=== PATIENT | female | born 1975 | race Caucasian/White ===

== ENCOUNTER → 2019-01-01 | Outpatient (CLI) | payer OTHER, SELFPAY ==
[2015-11-07 17:32] VITALS: BMI 21.4
[2019-01-01 18:31] LABS: ALB/GLOB Ratio 1.2 RATIO (0.9-2.4); AST(SGOT) 13 U/L (15-37); Alanine Aminotransfer ALT/SGPT 15 U/L (13-56); Albumin, Serum 3.9 g/dL (3.2-5.0); Alkaline Phosphatase 53 U/L (45-117); Anion Gap 6 (5-15); BUN 17 mg/dL (7-18); BUN/Creat Ratio 18.4 RATIO (10-20); Calcium,Total 8.9 mg/dL (8.5-10.1); Chloride 106 mmol/L (98-107); Creatinine, Serum 0.92 mg/dL (0.55-1.02); EST Glomerular Filtration Rate 70 mL/min (>60); Est Glom Filt Rate - Afr Amer 85 mL/min (>60); Globulin 3.2 g/dL (2.2-4.2); Glucose 89 mg/dL (74-106); Potassium 4.4 mmol/L (3.5-5.1); Protein, Total 7.1 g/dL (6.4-8.2); Sodium Level 140 mmol/L (136-145); Thyroid Stim Hormone (TSH) 2.17 uIU/mL (0.358-3.74)
== END | disposition home or self-care (01) ==
LOC: MTLAB 17:02
PROVIDERS: Family Provider Nurse Practitioner; PCP Nurse Practitioner; Referring Provider Nurse Practitioner; Visit Provider Nurse Practitioner
DX: F41.9 Anxiety disorder, unspecified (principal); Z13.1 Encounter for screening for diabetes mellitus
CPT/HCPCS: 36415; 80053; 84443

== ENCOUNTER → 2020-09-26 10:54 | Outpatient (CLI) | payer OTHER, SELFPAY ==
[2020-07-04 13:00] VITALS: BMI 22.3
[2020-07-18 11:01] VITALS: BMI 22.8
[2020-09-26 11:21] LABS: Absolute Lymphocyte Count 2.04 X10^3/uL (0.83-4.51); Absolute Neutrophil Count 1.9 X10^3/uL (2.0-7.7); Basophil# 0.02 X10^3/uL; Basophil% 0.4 % (0-1); Eosinophil# 0.16 X10^3/uL; Eosinophils% 3.5 % (0-5); Hemoglobin 14.4 g/dL (12.0-15.0); Lymphocyte # 2.04 X10^3/ul (0.83-4.51); Lymphocyte % 44.4 % (19-41); Mean Corp Hgb Conc 34.3 g/dL (32-36); Mean Corpuscular Hgb 31.4 pg (27.0-32.0); Mean Corpuscular Volume 91.5 fL (81-99); Monocyte# 0.51 X10^3/uL; Monocyte% 11.1 % (0-10); NRBC Flagged by Analyzer 0 % (0-5); Neutrophil # 1.85 X10^3/uL (2.7-7.7); Neutrophil % 40.4 % (47-70); Platelet Count 231 K/mm3 (150-450); RBC Distribution Width CV 12.2 % (11.6-14.6); RBC Distribution Width SD 40.8 fl (35.1-43.9); Red Blood Count 4.59 M/mm3 (4.2-5.4); White Blood Count 4.6 K/mm3 (4.4-11.0)
[2020-09-26 11:56] LABS: ALB/GLOB Ratio 1.2 RATIO (0.9-2.4); AST(SGOT) 11 U/L (15-37); Alanine Aminotransfer ALT/SGPT 13 U/L (13-56); Albumin, Serum 4.1 g/dL (3.2-5.0); Alkaline Phosphatase 55 U/L (45-117); Anion Gap 6 (5-15); BUN 14 mg/dL (7-18); BUN/Creat Ratio 15.7 RATIO (10-20); Calcium,Total 8.8 mg/dL (8.5-10.1); Chloride 104 mmol/L (98-107); Creatinine, Serum 0.89 mg/dL (0.55-1.02); EST Glomerular Filtration Rate 73 mL/min (>60); Est Glom Filt Rate - Afr Amer 88 mL/min (>60); Globulin 3.3 g/dL (2.2-4.2); Glucose 84 mg/dL (74-106); Potassium 4.1 mmol/L (3.5-5.1); Protein, Total 7.4 g/dL (6.4-8.2); Sodium Level 140 mmol/L (136-145); Thyroid Stim Hormone (TSH) 2.13 uIU/mL (0.358-3.74)
== END ==
PROVIDERS: PCP Nurse Practitioner; Visit Provider Nurse Practitioner
DX: F41.9 Anxiety disorder, unspecified (principal)
CPT/HCPCS: 36415; 80053; 84443; 85025

== ENCOUNTER 2022-03-08 16:30 | Outpatient (RCR) | payer OTHER, SELFPAY ==
--- NOTE | 2022-02-05 14:59 | HP.PTEVAL ---
Patient's Visit Information KASHMIR IGNACIO is a 46 year old F referred to Physical Therapy by Toshia Rodriguez NP-C with a diagnosis of CERVICALALGIA. Date of Evaluation: 02/05/22 Physical Therapist: Stone Leija, PT, Cert MDT, OCS - Visit Plan Frequency: 2x /Week Duration: 4 Weeks Plan: PT INTERVTIONS MANUAL THAERAPY OCCIPUT /OA/AA MOBILIZATION ,TRACTION ,US CERVICAL ROM /POSTURAL EX'S AND PATIENT EDUACTION - Subjective This 46 y/o female presents to physical therapy cervicalgia . Patient has cervical pain since September no etiology or mechanism of injury. Recently seen recommended PT and did x-rays DDD. Patient had blood work - for RA factor and inflammatory . Patient base of occiput. Aggravating factors turning ,bending . Alleviating rest. Denies paresthesia/tingling -. Denies GALAN/tinnitus/nausea. Patient sleeping good occasional during. Patient has no h/o trauma or injury . Patient goals to have no pain. 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 NEURO: denies paresthesia/tingling ,reflex's C5-6-7 3/3. PALPATION: tender base of occiput. AROM: BUE WFL. MMT: grossly 4/5. CERVICAL ROM: flexion min loss ,extension WFL, rotation mod loss ,lateral flexion min loss. UPPPER CERVICAL ROM mod/severe loss - Special Tests C/S Radiculapathy - Left Upper limb tension test: Negative C/S Radiculapathy - Right Upper limb tension test: Negative C/S Radiculapathy - Left Spurlings: Negative C/S Radiculapathy - Right Spurlings: Negative C/S Radiculapathy - Left Cervical distraction: Negative C/S Radiculapathy - Right Cervical distraction: Negative C/S Radiculapathy - Left Relief test: Negative C/S Radiculapathy - Right Relief test: Negative Sharp Parisa: Negative Vertebral Artery Test: Negative Alar Ligament Test: Negative - Balance/Special Test Scores Oswestry Neck Score: 17 - Goals Goal 1:: Patient to be I with posture and cervical spine Goal Time Frame: 4-6 Weeks Goal 2:: Patient to improve cervical ROM rotation and upper cervical spine to min loss for function of recovery to turn neck for driving Goal Time Frame: 4-6 Weeks Goal 3:: Patient to demonstrate 60% improvement with increase ROM and less pain Goal Time Frame: 4-6 Weeks Goal 4:: Patient to improve neck oswestry score by 5 points > to improve QOL and function Goal Time Frame: 4-6 Weeks - Rehabilitation Potential Physical Therapy Diagnosis: This patient has upper cervical dysfunction with poor upper cervical spine rotation ,pain and causing limitation rotation and job demands. thus benefit from skilled PT Rehabilitation Potential: Good - Anticipated Interventions Therapeutic Exercise to Include: Strength training, Postural training, Flexibilty training, Active ROM, Brittany Exercises For the Purpose of:: To decrease pain, To increase ROM, To improve muscle performance and motor function, To increase tolerance to activity/condition/position, To improve ability of physical actions for home/community/work/leisure, To improve health of tissue, To decrease soft tissue restriction, To increase flexibility/ROM, To prevent re-injury Manual Therapy Techniques to Include: Mobilization, Soft tissue mobilization Comment: UPPER C-SPINE For the Purpose of:: To decrease pain, To increase ROM, To improve nutrient delivery to tissue, To increase oxygenation perfusion, To improve muscle performance and motor function, To improve health of tissue, To decrease soft tissue restriction, To increase flexibility/ROM TENS: Yes IF ES: Yes Cryotherapy (ice pack, ice massage): Yes Thermo therapy (hot pack): Yes Ultrasound (thermal/non thermal): Yes Intermittent cervical traction: Yes For the Purpose of:: To decrease pain, To increase ROM, To improve nutrient delivery to tissue, To increase oxygenation perfusion, To improve health of tissue, To decrease soft tissue restriction Thank you for the opportunity to evaluate your patient. For Medicare and Medicare HMO plans, please review the plan of care and approve it. It will need to be FAXED BACK to us at [phone] for Medicare purposes. For Medicare only, by signing this I certify the plan of care. Please let me know if there are questions or concerns regarding this plan of care. Physician Signature: Date:
--- NOTE | 2022-03-08 17:33 | HP.PTDCSUM_ITS ---
It has been my pleasure to treat KASHMIR IGNACIO referred by Toshia Rodriguez, ELOINA-C, with the diagnosis of CERVICALALGIA for a total of 8 visit(s). Discharge Date: 03/08/22 Please see the following information for a summary of their discharge status. Subjective: PATIENT REPORTS HER NECK PAIN IS NO BETTER AND SOME OF HER OTHER NECK MUSCLES ARE EVEN MORE SORE. SHE THINKS THIS MIGHT BE DUE TO THE FACT THAT SHE STARTED USING SOME MUSCLES WITH THE EX'S THAT SHE HASN'T USED FOR AWHILE. PATIENT REPORTS HER NECK PAIN STARTED IN SEPTEMBER FOR NO APPARENT REASON AND IS WORSE NOW THAN THEN. PATIENT DENIES ANY NECK PAIN, TESTS OR TREATMENT PRIOR TO SEPTEMBER 2021. Bilateral Neck Pain Intensity (Out of 10): 3 % Improvement: 0 Objective/Function: PATIENT WAS SEEN TODAY FOR RE-ASSESSMENT OF PROGRESS TOWARD THE SET PT GOALS AND THE NEED FOR FURTHER PHYSICAL THERAPY VS READINESS FOR DISCHARGE. UPON EXAM TODAY THERE ARE NO SIGNIFICANT CHANGES SINCE INITIAL EVAL EXCEPT PATIENT DEMO'S IMPROVED LEVY CERVICAL ROM WITH ONLY MINIMAL MVMT LOSS NOW AND WITH TESTING PATIENT REPORTS SHE REALIZES NOW THAT THIS HAS IMPROVED. SHE GETS PAIN IN THE UPPER NECK/OCCIPUT REGION WITH CERVICAL EXTENSION TESTING AND AT THE END OF THE AVAILABLE ROM INTO LEVY ROTATION. OTHERWISE SHE DENIES IMPROVEMENT IN THE SX'S SHE CAME HERE FOR. Goal 1:: Patient to be I with posture and cervical spine Goal Progress: Not Progressing Goal 2:: Patient to improve cervical ROM rotation and upper cervical spine to min loss for function of recovery to turn neck for driving Goal Progress: Progressing Goal 3:: Patient to demonstrate 60% improvement with increase ROM and less pain Goal Progress: Progressing Goal 4:: Patient to improve neck oswestry score by 5 points > to improve QOL and function Goal Progress: Goal Met Plan: D/C DUE TO LACK OF PROGRESS. PCP RE-CHECK RECOMMENDED. PATIENT CLIFFORD HERNANDEZ. Rheumatology ANT'T PENDING IN MAR. If there are questions or concerns regarding this patient's physical therapy, please feel free to call me at [phone]. Thank you for the referral of this patient. Sincerely, Linda Holder, PT, Cert MDT Balance/Gait/Functional tests - Balance/Special Test Scores Oswestry Neck Score: 10
== END 2022-03-08 19:00 | disposition home or self-care (01) ==
LOC: PT 16:30
PROVIDERS: PCP Nurse Practitioner Family; Referring Provider Nurse Practitioner Family; Visit Provider Nurse Practitioner Family
DX: M54.2 Cervicalgia (principal)
CPT/HCPCS: 97035; 97110; 97140; 97161; 97164

== ENCOUNTER → 2022-07-08 | Outpatient (CLI) | payer OTHER, SELFPAY ==
--- NOTE | 2022-07-08 14:21 | US_ITS ---
EXAM: US Head/Neck Soft Tissue HISTORY: palpable RT neck mass COMPARISON: None FINDINGS: Parotid gland measures 4.8 x 2.2 x 2.0 cm on the right and 4.7 x 1.9 x 1.7 cm on the left. No suspicious parotid mass. The palpable lump corresponds to a benign-appearing lymph node measuring 1.3 x 1.0 x 0.6 cm. This is medial to the right parotid gland. No sonographic evidence of hyperemia or fluid collection. US/Head/Neck Soft Tissue IMPRESSION: No suspicious sonographic findings, palpable lump corresponds to a physiologic lymph node. Electronically Signed: Almas Barrett MD at 15:11 EDT ,
== END | disposition home or self-care (01) ==
LOC: US 14:19
PROVIDERS: PCP Nurse Practitioner Family; Visit Provider Nurse Practitioner Family
DX: K11.8 Other diseases of salivary glands (principal)
CPT/HCPCS: 76536

== ENCOUNTER → 2023-06-02 | Outpatient (CLI) | payer OTHER, SELFPAY | END | disposition home or self-care (01) | LOC: LABSPEC 17:09 | PROVIDERS: PCP Nurse Practitioner Family; Referring Provider Otolaryngology; Visit Provider Otolaryngology | DX: J34.89 Other specified disorders of nose and nasal sinuses (principal) | CPT/HCPCS: 87070; 87205 ==

== ENCOUNTER → 2024-09-03 | Outpatient (CLI) | payer OTHER, SELFPAY ==
[2024-09-03 12:04] LABS: ALB/GLOB Ratio 1.6 RATIO (0.9-2.4); AST(SGOT) 17 U/L (<=31); Alanine Aminotransfer ALT/SGPT 7 U/L (<=34); Albumin, Serum 4.3 g/dL (3.5-5.0); Alkaline Phosphatase 62 U/L (35-104); Anion Gap 9 (5-15); BUN 9 mg/dL (4-19); BUN/Creat Ratio 10.9 RATIO (10-20); Calcium,Total 9.2 mg/dL (7.6-11.0); Carbon Dioxide 26.3 mmol/L (21.0-32.0); Chloride 104 mmol/L (98-108); Creatinine, Serum 0.81 mg/dL (0.70-1.20); EST Glomerular Filtration Rate 89 (>60); Globulin 2.6 g/dL (2.2-4.2); Glucose 87 mg/dL (70-99); Potassium 4.3 mmol/L (3.3-5.1); Protein, Total 6.9 g/dL (5.9-8.4); Sodium Level 139 mmol/L (133-145); Total Bilirubin 0.79 mg/dL (0.00-1.30)
[2024-09-03 13:23] LABS: Cholesterol 208 mg/dL (<=200); High Density Lipoprotein 55 mg/dL; Low Density Lipoprotein Calc. 134 mg/dL; Triglycerides 96 mg/dL; Very Low Density Lipoprotein 19 mg/dL (5-40); cholesterol:hdl ratio screen 3.79
[2024-09-04 05:07] LABS: HSV 1 IgG Non Reactive (Non Reactive); HSV 2 IgG Non Reactive (Non Reactive)
[2024-09-04 12:08] LABS: ANTINUCLEAR ANTIBODIES DIRECT Negative (Negative)
== END | disposition home or self-care (01) ==
PROVIDERS: PCP Family Medicine; Referring Provider Family Medicine; Visit Provider Family Medicine
DX: Z00.00 Encounter for general adult medical examination without abnormal findings (principal); B00.1 Herpesviral vesicular dermatitis; J31.0 Chronic rhinitis; R53.83 Other fatigue
CPT/HCPCS: 36415; 80053; 80061; 86038; 86695; 86696